=== PATIENT | female | born 1960 | race African-American/Black ===

== ENCOUNTER 2017-10-16 12:34 | Emergency (ER) | payer SELFPAY ==
[~2017-10-16] VITALS: Ht 165.1 cm; Wt 63.6 kg
[2017-10-16 12:38] VITALS: BP 105/74; PULSE 102; RESP 14; TEMP 97.6; O2SAT 96
--- NOTE | 2017-10-16 14:20 | RADRPT ---
EXAM DATE/TIME: 10/16/2017 13:17 [place] COMPARISON: No previous studies available for comparison. INDICATIONS : Short of breath. MEDICAL HISTORY : daughter in law states stage IV colon cancer, is in Hospice SURGICAL HISTORY : port for chemotherapy ENCOUNTER: Initial ACUITY: 1 day PAIN SCORE: Non-responsive. LOCATION: Bilateral chest FINDINGS: PA and lateral views of the chest demonstrate the lungs to be symmetrically aerated without evidence of mass, infiltrate or effusion. The cardiomediastinal contours are unremarkable. Osseous structure s are intact. [place]-u-Pupp is in place via left internal jugular approach with its tip in the superi or vena cava. CONCLUSION: No acute cardiopulmonary disease. Royce Alford MD on October 16, 2017 at 14:02 Board Certified Radiologist. This report was verified electronically.
[2017-10-16 14:37] LABS: AUTOMATED NEUTROPHIL # 11.4 TH/MM3 (1.8-7.7); BASOPHIL # 0.1 TH/MM3 (0-0.2); BASOPHIL % 0.4 % (0.0-2.0); EOSINOPHIL % 0.1 % (0.0-4.0); HEMOGLOBIN 10.6 GM/DL (11.6-15.3); LYMPH % 6.6 % (9.0-44.0); LYMPHOCYTE # 0.9 TH/MM3 (1.0-4.8); MEAN CELL VOLUME 90.9 FL (80.0-100.0); MEAN CORPUSCULAR HEMOGLOBIN 28.3 PG (27.0-34.0); MEAN CORPUSCULAR HGB CONC 31.2 % (32.0-36.0); MONO % 9.7 % (0.0-8.0); MONOCYTE # 1.3 TH/MM3 (0-0.9); NEUT % 83.2 % (16.0-70.0); PLATELET COUNT 468 TH/MM3 (150-450); RED BLOOD COUNT 3.74 MIL/MM3 (4.00-5.30); WHITE BLOOD COUNT 13.7 TH/MM3 (4.0-11.0)
[2017-10-16 15:05] LABS: ALBUMIN 2.1 GM/DL (3.4-5.0); ALT (GPT) 12 U/L (10-53); AST (GOT) 101 U/L (15-37); BICARBONATE 22.7 MEQ/L (21.0-32.0); BLOOD UREA NITROGEN 24 MG/DL (7-18); CALCIUM 9.7 MG/DL (8.5-10.1); CHLORIDE 106 MEQ/L (98-107); CREATININE 1.41 MG/DL (0.50-1.00); GLOMERULAR FILTRATION RATE 47 ML/MIN (>89); GLUCOSE,RANDOM 98 MG/DL (74-106); SODIUM (NA) 135 MEQ/L (136-145)
[2017-10-16 15:08] LABS: ALKALINE PHOSPHATASE 480 U/L (45-117); TOTAL BILIRUBIN ADULT 1.2 MG/DL (0.2-1.0); TOTAL PROTEIN 8.8 GM/DL (6.4-8.2)
--- NOTE | 2017-10-16 15:49 | PD ---
HPI Chief Complaint: Cold / Flu Symptoms Time Seen by Provider: 15:23 Travel History International Travel<30 days: No Contact w/Intl Traveler<30days: No Traveled to known affect area: No History of Present Illness HPI 57-year-old Afro-[place] female brought in by EMS from home, with history of stage IV colon cancer on hospice, brought in at the request of her daughter-in- law for complaints of cough and increased difficulty swallowing in the past week. Patient has not had fever. [facility] is her hospice service. They were not called prior to the patient being transported here. Patient has multiple meds for her pain and swelling. Patient denies any acute significant pain compared to normal. She denies shortness of breath. She does have some cough with clear mucus. She states no significant abdominal pain. She states she is moving her bowels. She denies urinary symptoms. Patient is rarely ambulatory at this point. She is allergic to penicillin. PFSH Past Medical History Cancer: Yes (COLON) ?: Not Past Surgical History Surgical History: Unable to Obtain Social History Alcohol Use: No Tobacco Use: No Substance Use: No Allergies-Medications (Allergen,Severity, Reaction): Coded Allergies: Penicillins (Verified Allergy, Unknown, 10/16/17) Review of Systems General / Constitutional: Positive: Chills, No: Fever Eyes: No: Visual changes HENT: No: Headaches Cardiovascular: No: Chest Pain or Discomfort Respiratory: Positive: Cough, No: Shortness of Breath, Wheezing Gastrointestinal: Positive: Loss of Appetite, Other (abdominal distention.), No : Nausea, Vomiting, Diarrhea, Abdominal Pain, Hematemesis, Hematochezia, Constipation Genitourinary: No: Urgency, Frequency, Dysuria Musculoskeletal: Positive: Myalgias, No: Pain Skin: No Rash Neurologic: No: Weakness Psychiatric: No: Depression Endocrine: No: Polydipsia Hematologic/Lymphatic: No: Easy Bruising Physical Exam Narrative GENERAL: Patient is comfortable, responsive, and in no obvious distress. She doesn't appear cachectic. SKIN: Warm and dry. No obvious rash. Patient has mild jaundice to the skin but not sclera. HEAD: Atraumatic. Normocephalic. EYES: Pupils equal and round. No scleral icterus. No injection or drainage. ENT: No nasal bleeding or discharge. Mucous membranes pink and moist. Pharynx is clear. Airway is patent. NECK: Trachea midline. No JVD. Supple nontender. CARDIOVASCULAR: Regular rate and rhythm. RESPIRATORY: No accessory muscle use. Clear to auscultation. Breath sounds equal bilaterally. GASTROINTESTINAL: Abdomen soft, non-tender, with moderate distention consistent with ascites. Hepatic margins firm and extended without tenderness. Spleen is Not palpable. MUSCULOSKELETAL: Extremities without clubbing, cyanosis, or bilateral 1-2+ nonpitting edema. No obvious deformities. NEUROLOGICAL: Awake and alert. No obvious cranial nerve deficits. Motor grossly within normal limits. Five out of 5 muscle strength in the arms and legs. Normal speech. PSYCHIATRIC: Appropriate mood and affect; insight and judgment normal. Data Data Last Documented VS Vital Signs Date Time Temp Pulse Resp B/P (MAP) Pulse Ox O2 Delivery O2 Flow Rate FiO2 10/16/17 12:38 97.6 102 14 105/74 (84) 96 Orders Orders Complete Blood Count With Diff (10/16/17 12:43) Comprehensive Metabolic Panel (10/16/17 12:43) Urinalysis - C+S If Indicated (10/16/17 12:43) Chest, Pa & Lat (10/16/17 12:43) Labs Laboratory Tests Test 10/16/17 14:05 White Blood Count 13.7 TH/MM3 Red Blood Count 3.74 MIL/MM3 Hemoglobin 10.6 GM/DL Hematocrit 34.0 % Mean Corpuscular Volume 90.9 FL Mean Corpuscular Hemoglobin 28.3 PG Mean Corpuscular Hemoglobin Concent 31.2 % Red Cell Distribution Width 19.0 % Platelet Count 468 TH/MM3 Mean Platelet Volume 7.0 FL Neutrophils (%) (Auto) 83.2 % Lymphocytes (%) (Auto) 6.6 % Monocytes (%) (Auto) 9.7 % Eosinophils (%) (Auto) 0.1 % Basophils (%) (Auto) 0.4 % Neutrophils # (Auto) 11.4 TH/MM3 Lymphocytes # (Auto) 0.9 TH/MM3 Monocytes # (Auto) 1.3 TH/MM3 Eosinophils # (Auto) 0.0 TH/MM3 Basophils # (Auto) 0.1 TH/MM3 CBC Comment DIFF FINAL Differential Comment Blood Urea Nitrogen 24 MG/DL Creatinine 1.41 MG/DL Random Glucose 98 MG/DL Total Protein 8.8 GM/DL Albumin 2.1 GM/DL Calcium Level 9.7 MG/DL Alkaline Phosphatase 480 U/L Aspartate Amino Transf (AST/SGOT) 101 U/L Alanine Aminotransferase (ALT/SGPT) 12 U/L Total Bilirubin 1.2 MG/DL Sodium Level 135 MEQ/L Potassium Level 5.7 MEQ/L Chloride Level 106 MEQ/L Carbon Dioxide Level 22.7 MEQ/L Anion Gap 6 MEQ/L Estimat Glomerular Filtration Rate 47 ML/MIN MDM Medical Decision Making Medical Screen Exam Complete: Yes Emergency Medical Condition: Yes Differential Diagnosis End-stage colon cancer patient. Hospice patient. Metastatic disease to the liver. Ascites. Pedal edema. Cough. Narrative Course Chest x-ray is negative CBC shows leukocytosis of 13.7. Hemoglobin was 10.6. I have no previous labs to compare to. CMP shows sodium 135, potassium is 5.7, BUN is 24, creatinine is 1.41, GFR is 47. Bilirubin was elevated at 1.2. AST is 101. Alkaline phosphatase is 480, and albumin is 2.1. Urinalysis is canceled. Based on the patient's current hospice status further medical evaluation is not felt warranted. [id number] is reassured that the chest x-ray is clear. Recommend discharge to home with close follow-up with hospice services. Diagnosis Primary Impression: Metastatic colon cancer in female Additional Impression: Cough Patient Instructions: General Instructions Additional Instructions: Based on the patient's current hospice status further medical evaluation is not felt warranted. [id number] is reassured that the chest x-ray is clear. Recommend discharge to home with close follow-up with hospice services. Med/Other Pt SpecificInfo: No Change to Meds Disposition: 01 DISCHARGE HOME Condition: Stable Deshawn Ga Oct 16, 2017 15:49
[2017-10-16] MEDS ORDERED: PROC2.5C RECTAL (16:05)
== END 2017-10-16 16:24 | disposition home or self-care (01) ==
LOC: NEPD 12:34
DX: C18.9 Malignant neoplasm of colon, unspecified (principal); R05 Cough; C78.7 Secondary malignant neoplasm of liver and intrahepatic bile duct
CPT/HCPCS: 71046; 80053; 85025; 99284